=== PATIENT | female | born 1950 | race Caucasian/White ===

== ENCOUNTER → 2019-02-16 | Outpatient (CLI) | payer MEDICARE, OTHER | LOC: MC.RAD 13:10 | DX: Z12.31 Encounter for screening mammogram for malignant neoplasm of breast (principal) ==

== ENCOUNTER 2019-10-01 13:19 | Outpatient (RCR) | payer MEDICARE, OTHER | END 2019-10-01 14:55 | disposition home or self-care (01) | LOC: WSPT 13:19 | DX: M20.12 Hallux valgus (acquired), left foot (principal); Z98.890 Other specified postprocedural states ==

== ENCOUNTER 2020-08-27 13:45 | Outpatient (RCR) | payer MEDICARE, OTHER | END 2020-09-08 | disposition home or self-care (01) | LOC: WSPT | DX: M25.511 Pain in right shoulder (principal) | CPT/HCPCS: G0283-GP ==

== ENCOUNTER 2020-09-10 14:49 | Outpatient (RCR) | payer MEDICARE | END 2020-09-22 15:33 | disposition home or self-care (01) | LOC: WSPT 14:49 | DX: M25.511 Pain in right shoulder (principal) ==

== ENCOUNTER 2022-01-27 07:19 | Outpatient (CLI) | payer MEDICARE, OTHER ==
[~2022-01-27] VITALS: Ht 167.6 cm; Wt 80.3 kg
[2022-01-27 08:20] LABS: HEMOGLOBIN 12.3 g/dl (12.5-16.0); MEAN CELL VOLUME 87 fl (80.0-100.0); MEAN CORPUSCULAR HEMOGLOBIN 29 pg (27-31); MEAN CORPUSCULAR HGB CONC 34 g/dl (33.0-37.0); MEAN PLATELET VOLUME 8.7 fl (7.4-10.4); PLATELET COUNT 312 K/mm3 (130-400); RED BLOOD COUNT 4.22 M/mm3 (4.10-5.30); REDCELL DISTRIBUTION WIDTH-CV 12.8 % (11.5-14.5)
[2022-01-27] MEDS ORDERED: HCTZ 25MG TAB25 MG PO (08:23)
[2022-01-27] MEDS ORDERED: PRINIVIL10 MG PO (08:23)
[2022-01-27] MEDS ORDERED: ESTROGEL0.06% TOP (08:25)
[2022-01-27] MEDS ORDERED: WELLBUTRIN SR150 M1 PO (08:25)
[2022-01-27] MEDS ORDERED: DESYREL 50MG50 MG PO (08:26)
[2022-01-27] MEDS ORDERED: PROAIR HFA0.09 MG/AC IH (08:27)
[2022-01-27] MEDS ORDERED: RT ADVAIR 228 DISKUS IH (08:27)
[2022-01-27] MEDS ORDERED: PERIOSTAT PO (08:28)
[2022-01-27 08:29] VITALS: BP 132/57; PULSE 62; TEMP 98.4
[2022-01-27 08:29] LABS: INR 0.9 (0.8-3.0); PROTHROMBIN TIME 10.7 SECONDS (9.7-12.8)
[2022-01-27 08:30] LABS: HEMATOCRIT 36.5 % (37.0-47.0)
[2022-01-27 08:39] LABS: CALCIUM 9.5 mg/dL (8.4-10.2); CREATININE, serum 0.98 mg/dL (0.57-1.11); POTASSIUM 3.8 mmol/L (3.5-4.5)
[2022-01-27 09:30] VITALS: BP 122/74; PULSE 85
--- NOTE | 2022-01-27 09:30 | NUR ---
RECIEVED REPORT FROM [facility], PT SITS UP IN BED, AWAKE AND ALERT, SISTER NOW IN ROOM, PT HAS OCCASIONAL COUGH, BUT TAKES POP AND CRACKERS WITHOUT DIFFICULTY. CALL LIGHT IN REACH
[2022-01-27 09:45] VITALS: BP 117/40; PULSE 80
[2022-01-27 10:00] VITALS: BP 119/60; PULSE 81
--- NOTE | 2022-01-27 10:00 | NUR ---
DR BARRIGA INTO TALK TO PT. PT SITS ON SIDE OF BED
[2022-01-27] MEDS ORDERED: COZAAR 50MG50 MG/TAB PO (10:02)
[2022-01-27] MEDS ORDERED: PROTONIX 40MG T40 MG PO (10:02)
[2022-01-27 10:15] VITALS: BP 131/55; PULSE 78
--- NOTE | 2022-01-27 10:30 | NUR ---
REVIEWED DISCHARGE INST. WITH PT ON 2 NEW MEDICATIONS ADDED AND TO STOP LISINIPRIL, WILL PATIENT CARE DIRECTOR RX AT HER PHARMACY, REVIEWED PRECAUTIONS AND FOLLOWUP WITH PT WITH VERBAL UNDERSTANDING. INT D'CD INTACT. PT UP AND DRESSED, DISCHARGED VIA W/C TO CAR WITH SISTER
== END 2022-01-27 10:30 | disposition home or self-care (01) ==
LOC: COL.RAD 07:19
PROVIDERS: Internal Medicine Cardiovascular Disease
DX: I08.0 Rheumatic disorders of both mitral and aortic valves (principal)
CPT/HCPCS: J2704

== ENCOUNTER 2022-04-26 20:15 | Emergency (ER) | payer MEDICARE, OTHER ==
[~2022-04-26] VITALS: Ht 167.6 cm; Wt 81.8 kg
[~2022-04-26 20:15] MED LIST: COZAAR 50MG50 MG/TAB PO; DESYREL 50MG50 MG PO; ESTROGEL0.06% TOP; HCTZ 25MG TAB25 MG PO; PERIOSTAT PO; PRINIVIL10 MG PO; PROAIR HFA0.09 MG/AC IH; PROTONIX 40MG T40 MG PO; RT ADVAIR 228 DISKUS IH; WELLBUTRIN SR150 M1 PO
[2022-04-26 20:21] VITALS: TEMP 98.3
[2022-04-26 22:23] VITALS: BP 127/61; PULSE 86
== END 2022-04-26 22:23 | disposition home or self-care (01) ==
LOC: COL.ER 20:15
DX: S00.83XA Contusion of other part of head, initial encounter (principal); S60.512A Abrasion of left hand, initial encounter; S60.511A Abrasion of right hand, initial encounter; Z28.310 Unvaccinated for COVID-19; W01.0XXA Fall on same level from slipping, tripping and stumbling without subsequent striking against object, initial encounter; Y93.K1 Activity, walking an animal